=== PATIENT | male | born 1945 | race Caucasian/White ===

== ENCOUNTER 2024-10-17 05:43 | Day surgery (SDC) | payer MEDICARE ==
[2024-10-17] MEDS ORDERED: TRIAMCINOLONE 15 MG/ML INJ INTRAOP ONE (06:00)
[2024-10-17] MEDS ORDERED: BETADINE 5% OPHTHALMIC 30 ML OP ONE (06:00)
[2024-10-17] MEDS: TETRACAINE 0.5% STERI-UNIT SOL OP ONE ×2 (06:43→07:26)
[2024-10-17] MEDS: Sodium Chloride 0.9% 10 ML FLUSH Syringe IJ ONE (06:43)
[2024-10-17] MEDS: Ak-Dilate OPHTHALMIC*** 1.065 ML, Cyclogyl 1% OPHTH SOL 1.065 ML, OCUFEN OPHTH*** 0.435 ML OP ONE (06:52)
[2024-10-17] MEDS ORDERED: Zofran 4 MG/2 ML VIAL IV PRN (08:00)
[2024-10-17] MEDS ORDERED: MAXITROL OP SCH (08:00)
[2024-10-17] MEDS ORDERED: propofoL IV ONE (08:56)
[2024-10-17] MEDS ORDERED: Epinephrine Preservative Free 1 MG/ML IJ ONE (09:00)
[2024-10-17] MEDS ORDERED: DEXMEDETOMIDINE 80 MCG/20ML-NS IV ONE (09:00)
[2024-10-17] MEDS ORDERED: ROBINUL ONE (09:13)
[2024-10-17 09:46] VITALS: RESP 16; TEMP 98
[2024-10-17 09:54] VITALS: BP 124/69; PULSE 74; O2SAT 100
== END 2024-10-17 10:05 | disposition home or self-care (01) ==
LOC: SDC 05:43
PROVIDERS: ATTEND Ophthalmology
DX: H25.811 Combined forms of age-related cataract, right eye (principal)
CPT/HCPCS: C1780; J0171; J2704; A9270-GY

== ENCOUNTER 2024-12-12 06:06 | Day surgery (SDC) | payer MEDICARE ==
[~2024-12-12 06:06] MED LIST: Lactated Ringers 1,000 ML IV SCH
[2024-12-12] MEDS ORDERED: Lactated Ringers 1,000 ML IV ONE (06:20)
[2024-12-12] MEDS ORDERED: Lactated Ringers 1,000 ML IV SCH (06:30)
[2024-12-12] MEDS: TETRACAINE 0.5% STERI-UNIT SOL OP ONE ×2 (06:55→07:23)
[2024-12-12] MEDS: [UNRECOGNIZED DRUG - OTHER] OP SCH (06:59)
[2024-12-12] MEDS: CYCLOGYL OP SCH (06:59)
[2024-12-12] MEDS ORDERED: BETADINE 5% OPHTHALMIC 30 ML OP NR (08:00)
[2024-12-12] MEDS ORDERED: Epinephrine Preservative Free 1 MG/ML INTRAOP NR (08:00)
[2024-12-12] MEDS ORDERED: MAXITROL OP SCH (08:00)
[2024-12-12] MEDS ORDERED: DEXTENZA OP NR (08:00)
[2024-12-12] MEDS ORDERED: TRIAMCINOLONE 15 MG/ML INJ INTRAOP NR (08:00)
[2024-12-12] MEDS ORDERED: DEXMEDETOMIDINE 80 MCG/20ML-NS IV NR (08:00)
[2024-12-12] MEDS ORDERED: Zofran 4 MG/2 ML VIAL IV PRN (08:00)
[2024-12-12] MEDS ORDERED: propofoL IV ONE ×2 (08:34→08:51)
[2024-12-12 08:59] VITALS: RESP 16
[2024-12-12 09:18] VITALS: BP 134/74; PULSE 71; TEMP 97.6; O2SAT 98
== END 2024-12-12 09:31 | disposition home or self-care (01) ==
LOC: SDC 06:06
PROVIDERS: ATTEND Ophthalmology
DX: H25.812 Combined forms of age-related cataract, left eye (principal); N40.0 Benign prostatic hyperplasia without lower urinary tract symptoms
CPT/HCPCS: 93005; 99100; C1780; J0171; J1096; J2704; A9270-GY